=== PATIENT | male | born 1965 | race African-American/Black ===

== ENCOUNTER 2016-10-24 09:36 | Inpatient (IN) | payer OTHER ==
[2016-10-24 09:54] VITALS: BMI 25.7
--- NOTE | 2016-10-24 11:25 | HP ---
CIWA Score - CIWA Score Nausea/Vomitin-No Nausea/No Vomiting Muscle Tremors: 4-Moderate,w/Arms Extend Anxiety: 1-Mildly Anxious Agitation: 4-Moderately Restless Paroxysmal Sweats: 1-Minimal Palms Moist Orientation: 0-Oriented Tacttile Disturbances: 3-Moderate Itch/Numb/Burn Auditory Disturbances: 0-None Visual Disturbances: 0-None Headache: 1-Very Mild CIWA-Ar Total Score: 14 Admission ROS BHS - HPI Chief Complaint: DETOX TX FOR ALCOHOL DEPENDENCE Allergies/Adverse Reactions: Allergies Allergy/AdvReac Type Severity Reaction Status Date / Time fish derived [Fish derived] Allergy Rash Verified 10/24/16 10:08 No Known Drug Allergies Allergy Verified 10/24/16 10:08 Pork/Porcine Containing Allergy Rash Verified 10/24/16 10:08 Products History of Present Illness: 51 Y/O AA/MALE WITH A HX OF ALCOHOL,COCAINE AND MARIJUANA DEPENDENCE SEEKING DETOX TX Exam Limitations: No Limitations - Ebola screening Have you traveled outside of the country in the last 21 days: No Have you had contact with anyone from an Ebola affected area: No Have you been sick,other than usual withdrawal symptoms: No Do you have a fever: No - Review of Systems Constitutional: Chills, Loss of Appetite, Night Sweats, Changes in sleep EENT: reports: Tearing, Dental Problems (MISSING TEETH) Respiratory: reports: No Symptoms reported Cardiac: reports: Lightheadedness GI: reports: Diarrhea, Poor Appetite, Poor Fluid Intake, Indigestion : reports: Frequency Musculoskeletal: reports: No Symptoms Reported Integumentary: reports: No Symptoms Reported Neuro: reports: Headache, Tremors, Unsteady Gait, Dizziness Endocrine: reports: No Symptoms Reported Hematology: reports: No Symptoms Reported Psychiatric: reports: Orientated x3, Anxious, Depressed Other Systems: Reviewed and Negative Patient History - Patient Medical History Hx Anemia: No Hx Asthma: No Hx Chronic Obstructive Pulmonary Disease (COPD): No Hx Cardiac Disorders: No Hx Hypertension: No Hx Hypercholesterolemia: No HX Cerebrovascular Accident: No Hx Seizures: No Hx Diabetes: No Hx Gastrointestinal Disorders: No Hx Genitourinary Disorders: No Hx Sexually Transmitted Disorders: Yes (SYPHILIS HX) Hx Renal Disease (ESRD): No Hx Thyroid Disease: No Hx Human Immunodeficiency Virus (HIV): No (NEGATIVE HX) Hx Hepatitis C: No Hx Depression: Yes (WAS ON REMERON AND SEROQUEL) Hx Suicide Attempt: No Hx Bipolar Disorder: Yes Hx Schizophrenia: No - Patient Surgical History Past Surgical History: No Hx Neurologic Surgery: No Hx Cataract Extraction: No Hx Cardiac Surgery: No Hx Lung Surgery: No Hx Breast Surgery: No Hx Breast Biopsy: No Hx Abdominal Surgery: No Hx Appendectomy: No Hx Cholecystectomy: No Hx Genitourinary Surgery: No Hx Orthopedic Surgery: No Anesthesia Reaction: No - PPD History Previous Implant?: Yes Documented Results: Negative w/proof Implanted On Prior [facility] Admission?: Yes Date: 11/07/15 Results: 0 mm PPD to be Administered?: No - Reproductive History Patient is a Female of Child Bearing Age (11 -55 yrs old): No (MALE) Patient : (N/A) - Smoking Cessation Smoking history: Former smoker Have you smoked in the past 12 months: No If you are a former smoker, when did you quit?: 2013 Hx Chewing Tobacco Use: No Initiated information on smoking cessation: No - Substance & Tx. History Hx Alcohol Use: Yes (VODKA/BEER) Hx Substance Use: Yes (CRACK/MARIJUANA/PCP) Substance Use Type: Alcohol, Cocaine, Marijuana - Substances Abused Alcohol Route: Oral Frequency: Daily Amount used: fifth of vodka Age of first use: 10 Date of Last Use: 10/24/16 Crack Route: Smoking Frequency: Daily Amount used: $20 Age of first use: 18 Date of Last Use: 10/23/16 Marijuana/Hashish Route: Smoking Frequency: Daily Amount used: $20 Age of first use: 10 Date of Last Use: 10/23/16 PCP Route: Smoking Frequency: 1-3 times last 30 days Amount used: 1 joint Age of first use: 18 Date of Last Use: 10/17/16 Family Disease History - Family Disease History Family History: Denies Admission Physical Exam BHS - Vital Signs Vital Signs: Vital Signs - 24 hr 10/24/16 09:51 Temperature 97.8 F Pulse Rate 94 H Respiratory 18 Rate Blood Pressure 134/83 - Physical General Appearance: Yes: Moderate Distress, Alcohol on Breath, Intoxicated, Irritable, Anxious HEENTM: Yes: EOMI, Normocephalic, JAY, Pharynx Normal Respiratory: Yes: Chest Non-Tender, Lungs Clear, Normal Breath Sounds, No Respiratory Distress Neck: Yes: No masses,lesions,Nodules, Supple, Trachea in good position Breast: Yes: Breast Exam Deferred Cardiology: Yes: Regular Rhythm, Regular Rate, S1, S2 Abdominal: Yes: Normal Bowel Sounds, Non Tender, Soft Genitourinary: Yes: Other (N/C) Back: Yes: Within Normal Limits Musculoskeletal: Yes: full range of Motion, Gait Steady Extremities: Yes: Normal Range of Motion, Non-Tender Neurological: Yes: retread builder II-XII NML intact, Fully Oriented, Alert Integumentary: Yes: Dry, Warm Lymphatic: Yes: Within Normal Limits - Diagnostic (1) Alcohol dependence with uncomplicated withdrawal Current Visit: Yes Status: Acute (2) Cannabis dependence, uncomplicated Current Visit: Yes Status: Acute (3) Nicotine dependence Current Visit: Yes Status: Acute Qualifiers: Nicotine product type: cigarettes Substance use status: in withdrawal Qualified Code(s): F17.213 - Nicotine dependence, cigarettes, with withdrawal (4) Cocaine dependence, uncomplicated Current Visit: Yes Status: Acute (5) PCP (phencyclidine) abuse Current Visit: Yes Status: Acute Cleared for Admission [facility] - Detox or Rehab [facility] Level of Care: Medically Managed Detox Regimen/Protocol: Librium [facility] Breath Alcohol Content Breath Alcohol Content: 0.128 Urine Drug Screen - Results Drug Screen Negative: No Urine Drug Screen Results: THC-Marijuana, [place]-Cocaine, PCP-Phencyclidine
[2016-10-24] MEDS ORDERED: IBUPROFEN 400 MG TABLET (FP) PO PRN (11:39)
[2016-10-24] MEDS ORDERED: MENTHOL/PHENOL 1 EACH UD MM PRN (11:39)
[2016-10-24] MEDS ORDERED: diphenhydrAMINE HCL 50 MG CAPSULE PO PRN (11:39)
[2016-10-24] MEDS ORDERED: ACETAMINOPHEN 325 MG TABLET (FP) PO PRN (11:39)
[2016-10-24] MEDS ORDERED: MAG HYDROX/AL HYDROX/SIMETH 30 ML UNIT-DOSE CUP PO PRN (11:39)
[2016-10-24] MEDS ORDERED: LOPERAMIDE HCL 2 MG CAPSULE PO PRN (11:39)
[2016-10-24] MEDS ORDERED: MAGNESIUM CITRATE 300 ML BOTTLE PO PRN (11:39)
[2016-10-24] MEDS ORDERED: guaiFENesin/D-METHORPHAN HB 10 ML UNIT-DOSE CUPS PO PRN (11:39)
[2016-10-24] MEDS ORDERED: MAGNESIUM HYDROX 2400MG/30ML ORAL SUSPENSION 30 ML CUP PO PRN (11:39)
[2016-10-24] MEDS ORDERED: P-EPHED 60MG/TRIPROLIDI 2.5MG TABLET PO PRN (11:39)
[2016-10-24] MEDS ORDERED: chlordiazePOXIDE HCL 25 MG CAPSULE PO PRN (11:39)
[2016-10-24] MEDS ORDERED: chlordiazePOXIDE HCL 25 MG CAPSULE PO ONE (11:50)
[2016-10-24] MEDS: chlordiazePOXIDE HCL 25 MG CAPSULE PO SCH ×3 (12:06→22:51)
--- NOTE | 2016-10-24 13:39 | CONSULT ---
[facility] Psychiatric Consult - Data Date of interview: 10/24/16 Admission source: [facility] Identifying data: This is 51 years old male with historey of Schizophrenia intoxicated with: Alcohol, Cocaine, Cannabis, PCP Substance Abuse History: - Smoking Cessation. Smoking history: Former smoker. Have you smoked in the past 12 months: No. If you are a former smoker, when did you quit?: 2013. Hx Chewing Tobacco Use: No. Initiated information on smoking cessation: No. - Substance & Tx. History. Hx Alcohol Use: Yes (VODKA/ BEER). Hx Substance Use: Yes (CRACK/MARIJUANA/PCP). Substance Use Type: Alcohol, Cocaine, Marijuana. - Substances Abused. Alcohol. Route: Oral. Frequency: Daily. Amount used: fifth of vodka. Age of first use: 10. Date of Last Use: 10/24/16. Crack. Route: Smoking. Frequency: Daily. Amount used : $20. Age of first use: 18. Date of Last Use: 10/23/16. Marijuana/ Hashish. Route: Smoking. Frequency: Daily. Amount used: $20. Age of first use: 10. Date of Last Use: 10/23/16. PCP. Route: Smoking. Frequency: 1-3 times last 30 days. Amount used: 1 joint. Age of first use: 18. Date of Last Use: 10/17/16 Medical History: Denies any significant medeical issues Psychiatric History: Patient reports to carry Bipolar disorder, as per computer there is a history of Schiozophrenia, patient reports taking prior to admission : Seroquel 150mg po qhs. Remeron 30mg po qhs. Patient reports most recent psychiatric admissiuon [facility] 0n 2015 with depressed mood, denies suicidal history Physical/Sexual Abuse/Trauma History: Denies Additional Comment: Seroquel 150mg po qhs. Remeron 30mg po qhs Mental Status Exam - Mental Status Exam Alert and Oriented to: Person Cognitive Function: Fair Patient Appearance: Unkempt Mood: Anxious Affect: Constricted Patient Behavior: Sedated, Guarded Speech Pattern: Appropriate Voice Loudness: Normal Thought Process: Circumstantial Thought Disorder: Being Controlled Hallucinations: Denies Suicidal Ideation: Denies Homicidal Ideation: Denies Insight/Judgement: Fair Sleep: Difficulty falling asleep Appetite: Fair Muscle strength/Tone: Normal Gait/Station: Shuffling Additional Comments: Seroquel 150mg po qhs. 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 Remeron 30mg po qhs
[2016-10-24 13:43] LABS: MCH 31.1 pg (25.7-33.7); MCHC 33.5 g/dl (32.0-35.9); MEAN CELL VOLUME 92.6 fl (80-96); MEAN PLT VOLUME 10.4 fl (7.5-11.1); PLATELET COUNT 188 K/MM3 (134-434); RDW 15.5 % (11.9-15.9); WHITE BLOOD COUNT 6.1 K/mm3 (4.0-10.0)
[2016-10-24 13:53] LABS: ALBUMIN 4.3 g/dl (3.4-5.0); CALCIUM 9.3 mg/dL (8.5-10.1); GLUCOSE,RANDOM 86 mg/dL (74-106)
[2016-10-24 13:58] LABS: ALK PHOS 43 U/L (45-117); ANION GAP 11 (8-16); BILIRUBIN,TOTAL 0.8 mg/dL (0.2-1.0); CO2 26 mmol/L (21-32); CREATININE 0.8 mg/dL (0.7-1.3); SGOT/AST 102 U/L (15-37); SGPT/ALT 131 U/L (12-78)
[2016-10-24 17:05] LABS: URINE APPEARANCE CLEAR; URINE BILIRUBIN NEGATIVE (NEGATIVE); URINE BLOOD 1+ (NEGATIVE); URINE COLOR DKYELLOW; URINE GLUCOSE (UA) NEGATIVE (NEGATIVE); URINE KETONE TRACE (NEGATIVE); URINE LEUK ESTERASE TRACE (NEGATIVE); URINE NITRITE NEGATIVE (NEGATIVE); URINE UROBILINOGEN NEGATIVE mg/dL (0.2-1.0)
[2016-10-24 17:08] LABS: URINE PROTEIN 1+ (NEGATIVE)
[2016-10-24 17:10] LABS: URINE MUCUS FEW; URINE RBC 2 /hpf (0-3); URINE WBC 13 /hpf (3-5)
--- NOTE | 2016-10-24 17:47 | EKG ---
Test Reason : Blood Pressure : / mmHG Vent. Rate : 070 BPM Atrial Rate : 070 BPM P-R Int : 142 ms QRS Dur : 088 ms QT Int : 380 ms P-R-T Axes : 067 064 035 degrees QTc Int : 410 ms NORMAL SINUS RHYTHM VOLTAGE CRITERIA FOR LEFT VENTRICULAR HYPERTROPHY ABNORMAL ECG NO PREVIOUS ECGS AVAILABLE Confirmed by JUDIT DALTON, SRIRAM ([id number]) on 10/24/2016 5:46:52 PM Referred By: Mo Singer Confirmed By:SRIRAM SPAIN MD
[2016-10-24] MEDS: MIRTAZAPINE 30 MG TABLET (FP) PO SCH (22:50)
[2016-10-24] MEDS: QUEtiapine FUMARATE 50 MG TABLET PO SCH (22:50)
[2016-10-24] MEDS: THIAMINE HCL 100 MG TABLET (FP) PO SCH (22:51)
[2016-10-25] MEDS: chlordiazePOXIDE HCL 25 MG CAPSULE PO SCH ×4 (05:43→22:14)
[2016-10-25] MEDS: PRENATAL VITAMINS W/ FOLIC ACID TABLET (FP) PO SCH (11:38)
--- NOTE | 2016-10-25 11:58 | PN ---
[facility] CIWA - CIWA Score Nausea/Vomitin Muscle Tremors: 3 Anxiety: 3 Agitation: 2 Paroxysmal Sweats: 1-Minimal Palms Moist Orientation: 0-Oriented Tacttile Disturbances: 1-Very Mild Itch/Numbness Auditory Disturbances: 1-Very Mild Visual Disturbances: 1-Very Mild Sensitivity Headache: 2-Mild CIWA-Ar Total Score: 17 S Progress Note (SOAP) Subjective: ALERT,IRRITABLE,ANXIOUS,INTERRUPTED SLEEP,TREMOR,PAIN IN THE BODY Objective: 10/25/16 11:54 Vital Signs Temperature 97.5 F L 10/25/16 06:13 Pulse Rate 82 10/25/16 06:13 Respiratory Rate 18 10/25/16 06:13 Blood Pressure 117/57 10/25/16 06:13 O2 Sat by Pulse Oximetry (%) EKG NSR,LVH NO CHEST PAIN,NO SOB,NO DIZZINESS Laboratory Last Values WBC 6.1 K/mm3 (4.0-10.0) D 10/24/16 11:50 RBC 5.08 M/mm3 (4.00-5.60) 10/24/16 11:50 Hgb 15.8 GM/dL (11.7-16.9) 10/24/16 11:50 Hct 47.0 % (35.4-49) 10/24/16 11:50 MCV 92.6 fl (80-96) 10/24/16 11:50 MCH 31.1 pg (25.7-33.7) 10/24/16 11:50 MCHC 33.5 g/dl (32.0-35.9) 10/24/16 11:50 RDW 15.5 % (11.9-15.9) D 10/24/16 11:50 Plt Count 188 K/MM3 (134-434) D 10/24/16 11:50 MPV 10.4 fl (7.5-11.1) 10/24/16 11:50 Sodium 137 mmol/L (136-145) 10/24/16 11:50 Potassium 4.4 mmol/L (3.5-5.1) D 10/24/16 11:50 Chloride 100 mmol/L (98-107) 10/24/16 11:50 Carbon Dioxide 26 mmol/L (21-32) 10/24/16 11:50 Anion Gap 11 (8-16) 10/24/16 11:50 BUN 8 mg/dL (7-18) D 10/24/16 11:50 Creatinine 0.8 mg/dL (0.7-1.3) 10/24/16 11:50 Creat Clearance w eGFR > 60 (>60) 10/24/16 11:50 Random Glucose 86 mg/dL (74-106) 10/24/16 11:50 Calcium 9.3 mg/dL (8.5-10.1) 10/24/16 11:50 Total Bilirubin 0.8 mg/dL (0.2-1.0) D 10/24/16 11:50 AST 102 U/L (15-37) H D 10/24/16 11:50 ALT 131 U/L (12-78) H D 10/24/16 11:50 Alkaline Phosphatase 43 U/L (45-117) L 10/24/16 11:50 Total Protein 8.0 g/dl (6.4-8.2) 10/24/16 11:50 Albumin 4.3 g/dl (3.4-5.0) 10/24/16 11:50 Urine Color Dkyellow 10/24/16 14:00 Urine Appearance Clear 10/24/16 14:00 Urine pH 5.0 (5.0-8.0) 10/24/16 14:00 Ur Specific [place] >= 1.030 (1.005-1.025) H 10/24/16 14:00 Urine Protein 1+ (NEGATIVE) H 10/24/16 14:00 Urine Glucose (UA) Negative (NEGATIVE) 10/24/16 14:00 Urine Ketones Trace (NEGATIVE) H 10/24/16 14:00 Urine Blood 1+ (NEGATIVE) H 10/24/16 14:00 Urine Nitrite Negative (NEGATIVE) 10/24/16 14:00 Urine Bilirubin Negative (NEGATIVE) 10/24/16 14:00 Urine Urobilinogen Negative mg/dL (0.2-1.0) 10/24/16 14:00 Ur Leukocyte Esterase Trace (NEGATIVE) 10/24/16 14:00 Urine RBC 2 /hpf (0-3) 10/24/16 14:00 Urine WBC 13 /hpf (3-5) 10/24/16 14:00 Urine Mucus Few 10/24/16 14:00 RPR Titer Nonreactive (NONREACTIVE) 10/24/16 11:50 Assessment: 10/25/16 11:56 WITHDRAWAL SYMPTOM Plan: CONTINUE DETOX.D/C TYLENOL FOR TRANSAMINASEMIA,REPEAT AST,ALT,INR IN AM
[2016-10-25] MEDS: THIAMINE HCL 100 MG TABLET (FP) PO SCH (22:13)
[2016-10-25] MEDS: QUEtiapine FUMARATE 50 MG TABLET PO SCH (22:13)
[2016-10-25] MEDS: MIRTAZAPINE 30 MG TABLET (FP) PO SCH (22:14)
[2016-10-26] MEDS: chlordiazePOXIDE HCL 25 MG CAPSULE PO SCH (05:53)
[2016-10-26 10:16] LABS: INR 1.01 (0.82-1.09); PROTHROMBIN TIME (PATIENT) 11.1 SEC (9.98-11.88); SGOT/AST 41 U/L (15-37); SGPT/ALT 86 U/L (12-78)
--- NOTE | 2016-10-26 10:43 | PN ---
S CIWA - CIWA Score Nausea/Vomitin Muscle Tremors: 3 Anxiety: 3 Agitation: 2 Paroxysmal Sweats: 1-Minimal Palms Moist Orientation: 0-Oriented Tacttile Disturbances: 1-Very Mild Itch/Numbness Auditory Disturbances: 1-Very Mild Visual Disturbances: 1-Very Mild Sensitivity Headache: 2-Mild CIWA-Ar Total Score: 17 BHS Progress Note (SOAP) Subjective: alert,irritable,anxious,interrupted sleep,tremor,pain in the body Objective: 10/26/16 10:42 Vital Signs Temperature 97.7 F 10/26/16 10:05 Pulse Rate 122 H 10/26/16 10:05 Respiratory Rate 20 10/26/16 10:05 Blood Pressure 137/82 10/26/16 10:05 O2 Sat by Pulse Oximetry (%) 10/26/16 10:42 10/26/16 10:43 repeat ast,alt pending Assessment: 10/26/16 10:42 withdrawal symptom 10/26/16 10:43 10/26/16 10:44 Plan: continue detox
[2016-10-26] MEDS: chlordiazePOXIDE 5 MG CAPSULE PO SCH ×3 (10:50→22:39)
[2016-10-26] MEDS: PRENATAL VITAMINS W/ FOLIC ACID TABLET (FP) PO SCH (10:50)
[2016-10-26] MEDS: QUEtiapine FUMARATE 50 MG TABLET PO SCH (22:40)
[2016-10-26] MEDS: THIAMINE HCL 100 MG TABLET (FP) PO SCH (22:40)
[2016-10-26] MEDS: MIRTAZAPINE 30 MG TABLET (FP) PO SCH (22:40)
[2016-10-27] MEDS: chlordiazePOXIDE 5 MG CAPSULE PO SCH (06:04)
--- NOTE | 2016-10-27 11:06 | PN ---
S Progress Note (SOAP) Subjective: ALERT,IRRITABLE,ANXIOUS,INTERRUPTED SLEEP Objective: 10/27/16 11:04 Vital Signs Temperature 96.8 F L 10/27/16 09:29 Pulse Rate 103 H 10/27/16 09:29 Respiratory Rate 18 10/27/16 09:29 Blood Pressure 130/87 10/27/16 09:29 O2 Sat by Pulse Oximetry (%) 10/27/16 11:04 Laboratory Last Values WBC 6.1 K/mm3 (4.0-10.0) D 10/24/16 11:50 RBC 5.08 M/mm3 (4.00-5.60) 10/24/16 11:50 Hgb 15.8 GM/dL (11.7-16.9) 10/24/16 11:50 Hct 47.0 % (35.4-49) 10/24/16 11:50 MCV 92.6 fl (80-96) 10/24/16 11:50 MCH 31.1 pg (25.7-33.7) 10/24/16 11:50 MCHC 33.5 g/dl (32.0-35.9) 10/24/16 11:50 RDW 15.5 % (11.9-15.9) D 10/24/16 11:50 Plt Count 188 K/MM3 (134-434) D 10/24/16 11:50 MPV 10.4 fl (7.5-11.1) 10/24/16 11:50 INR 1.01 (0.82-1.09) 10/26/16 06:30 Sodium 137 mmol/L (136-145) 10/24/16 11:50 Potassium 4.4 mmol/L (3.5-5.1) D 10/24/16 11:50 Chloride 100 mmol/L (98-107) 10/24/16 11:50 Carbon Dioxide 26 mmol/L (21-32) 10/24/16 11:50 Anion Gap 11 (8-16) 10/24/16 11:50 BUN 8 mg/dL (7-18) D 10/24/16 11:50 Creatinine 0.8 mg/dL (0.7-1.3) 10/24/16 11:50 Creat Clearance w eGFR > 60 (>60) 10/24/16 11:50 Random Glucose 86 mg/dL (74-106) 10/24/16 11:50 Calcium 9.3 mg/dL (8.5-10.1) 10/24/16 11:50 Total Bilirubin 0.8 mg/dL (0.2-1.0) D 10/24/16 11:50 AST 41 U/L (15-37) H D 10/26/16 06:30 ALT 86 U/L (12-78) H D 10/26/16 06:30 Alkaline Phosphatase 43 U/L (45-117) L 10/24/16 11:50 Total Protein 8.0 g/dl (6.4-8.2) 10/24/16 11:50 Albumin 4.3 g/dl (3.4-5.0) 10/24/16 11:50 Urine Color Dkyellow 10/24/16 14:00 Urine Appearance Clear 10/24/16 14:00 Urine pH 5.0 (5.0-8.0) 10/24/16 14:00 Ur Specific [place] >= 1.030 (1.005-1.025) H 10/24/16 14:00 Urine Protein 1+ (NEGATIVE) H 10/24/16 14:00 Urine Glucose (UA) Negative (NEGATIVE) 10/24/16 14:00 Urine Ketones Trace (NEGATIVE) H 10/24/16 14:00 Urine Blood 1+ (NEGATIVE) H 10/24/16 14:00 Urine Nitrite Negative (NEGATIVE) 10/24/16 14:00 Urine Bilirubin Negative (NEGATIVE) 10/24/16 14:00 Urine Urobilinogen Negative mg/dL (0.2-1.0) 10/24/16 14:00 Ur Leukocyte Esterase Trace (NEGATIVE) 10/24/16 14:00 Urine RBC 2 /hpf (0-3) 10/24/16 14:00 Urine WBC 13 /hpf (3-5) 10/24/16 14:00 Urine Mucus Few 10/24/16 14:00 RPR Titer Nonreactive (NONREACTIVE) 10/24/16 11:50 Assessment: 10/27/16 11:05 WITHDRAWAL SYMPTOM Plan: CONTINUE DETOX,DISCHARGE IN AM
[2016-10-27] MEDS: PRENATAL VITAMINS W/ FOLIC ACID TABLET (FP) PO SCH (11:21)
[2016-10-27] MEDS: chlordiazePOXIDE HCL 10 MG CAPSULE PO SCH ×3 (11:22→22:29)
[2016-10-27] MEDS: QUEtiapine FUMARATE 50 MG TABLET PO SCH (22:28)
[2016-10-27] MEDS: MIRTAZAPINE 30 MG TABLET (FP) PO SCH (22:28)
[2016-10-27] MEDS: THIAMINE HCL 100 MG TABLET (FP) PO SCH (22:29)
[2016-10-28] MEDS: chlordiazePOXIDE HCL 10 MG CAPSULE PO SCH (05:55)
[2016-10-28 06:30] VITALS: BP 111/66; PULSE 101; TEMP 98.1
--- NOTE | 2016-10-28 09:39 | DS ---
[facility] Detox Discharge Summary Admission Date: 10/24/16 Discharge Date: 10/28/16 - History Present History: Alcohol Dependence, Cannabis Dependence, Cocaine Dependence Pertinent Past History: pcp abused nicotine dependence paranoid schizophrenia - Physical Exam Results Vital Signs: Vital Signs Temperature 98.1 F 10/28/16 06:28 Pulse Rate 101 H 10/28/16 06:28 Respiratory Rate 18 10/28/16 06:28 Blood Pressure 111/66 10/28/16 06:28 O2 Sat by Pulse Oximetry (%) Pertinent Admission Physical Exam Findings: withdrawal symptom - Treatment Hospital Course: Detox Protocol Followed, Detoxed Safely, Responded well, Discharged Condition Good, Rehab Referral Accepted Patient has Accepted a Rehab Referral to: [facility] - Medication Discharge Medications: Ambulatory Orders Quetiapine Fumarate [Seroquel -] 50 mg PO HS 11/05/15 Quetiapine Fumarate [Seroquel] 50 tab PO HS #30 tablet 11/05/15 - Diagnosis (1) Alcohol dependence with uncomplicated withdrawal Current Visit: Yes Status: Acute (2) Cannabis dependence, uncomplicated Current Visit: Yes Status: Acute (3) Cocaine dependence, uncomplicated Current Visit: Yes Status: Acute (4) Nicotine dependence Current Visit: Yes Status: Acute Qualifiers: Nicotine product type: cigarettes Substance use status: in withdrawal Qualified Code(s): F17.213 - Nicotine dependence, cigarettes, with withdrawal (5) PCP (phencyclidine) abuse Current Visit: Yes Status: Acute (6) Paraphrenic schizophrenia Current Visit: No Status: Suspected - AMA Did Patient Leave Against Medical Advice: No
== END 2016-10-28 10:08 | disposition home or self-care (01) | DRG 774 ==
LOC: YASAS 09:36 → Y6N 11:38
PROVIDERS: ADMIT Internal Medicine; ATTEND Internal Medicine
PROC: HZ2ZZZZ Detoxification Services for Substance Abuse Treatment (ICD-10-PCS; principal; 2016-10-24)
DX: F10.230 Alcohol dependence with withdrawal, uncomplicated (principal); F14.20 Cocaine dependence, uncomplicated; F12.20 Cannabis dependence, uncomplicated; F16.10 Hallucinogen abuse, uncomplicated; F17.213 Nicotine dependence, cigarettes, with withdrawal; F20.0 Paranoid schizophrenia; Z87.438 Personal history of other diseases of male genital organs; Z91.013 Allergy to seafood; Z91.018 Allergy to other foods; Z59.0 Homelessness
CPT/HCPCS: 36415; 80053; 81003; 81015; 84450; 84460; 85027; 85610; 86593; 93005; 93010

== ENCOUNTER 2019-10-01 10:09 | Inpatient (IN) | payer OTHER ==
--- NOTE | 2019-10-01 10:24 | BHS.RME ---
Substance Use & Tx History - Substance Use History Alcohol Substance amount: 2 pints vodka Frequency of use: Daily Substance route: Oral Date of Last Use: 10/01/19 (6am) Cocaine- Powder Substance amount: $50 Frequency of use: Less than 3 times per week Substance route: Inhalation (ex: sniffing or snorting) Date of Last Use: 09/26/19 Marijuana/Hashish Substance amount: 1 JOINT Frequency of use: Daily Substance route: Smoking Date of Last Use: 10/01/19 Physical/Psych/Mental Status - Behavior General Behavior: Increased activity (restlessness, agitation) Eye Contact: Normal - Cooperativeness Cooperativeness: Cooperative - Thinking Thought Processes: Tight, Logical, Goal Directed - Physical Health Problems Is patient presently having any pain?: No Does patient presently have any injuries (include location): No Does patient currently have a fever: No Is patient : No CIWA Nausea/Vomitin-No Nausea/No Vomiting Muscle Tremors: 1-None Visible, but [place] Anxiety: 3 Agitation: 3 Paroxysmal Sweats: No Perspiration Orientation: 1-Uncertain about Date Tacttile Disturbances: 1-Very Mild Itch/Numbness Auditory Disturbances: 0-None Visual Disturbances: 0-None Headache: 0-None Present CIWA-Ar Total Score: 9
--- NOTE | 2019-10-01 10:30 | HP ---
CIWA Score Nausea/Vomitin-No Nausea/No Vomiting Muscle Tremors: 1-None Visible, but [place] Anxiety: 3 Agitation: 3 Paroxysmal Sweats: No Perspiration Orientation: 1-Uncertain about Date Tacttile Disturbances: 1-Very Mild Itch/Numbness Auditory Disturbances: 0-None Visual Disturbances: 0-None Headache: 0-None Present CIWA-Ar Total Score: 9 - Admission Criteria OASAS Guidelines: Admission for Medically Managed Detox: Requires at least one of the followin. CIWA greater than 12 2. Seizures within the past 24 hours 3. Delirium tremens within the past 24 hours 4. Hallucinations within the past 24 hours 5. Acute intervention needed for co occurring medical disorder 6. Acute intervention needed for co occurring psychiatric disorder 7. Severe withdrawal that cannot be handled at a lower level of care (continued vomiting, continued diarrhea, abnormal vital signs) requiring intravenous medication and/or fluids 8. Admitting History and Physical - Admission Chief Complaint: Mr. Calhoun is a 54 yo man who presents to [facility] stating "I need help". He requests admission to detox for alcohol, cocaine and marijuana use. History of Present Illness: Mr. Calhoun is a 54 yo man who presents to [facility] stating "I need help". He requests admission to detox for alcohol, cocaine and marijuana use. PMH: none PSH: left inguinal hernia Psych: Bipolar, depression, anxiety (Remeron 200 qhs, Seroquel 15 mg bid) SOC: homeless: streets Legal: none - Substance Use History Alcohol Substance amount: 2 pints vodka Frequency of use: Daily Substance route: Oral Date of Last Use: 10/01/19 (6am) Began age 10 y No seizure, no blackout. 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 Cocaine- Powder Substance amount: $50 Frequency of use: Less than 3 times per week Substance route: Inhalation (ex: sniffing or snorting) Date of Last Use: 09/26/19 First use age 18 y Marijuana/Hashish Substance amount: 1 JOINT Frequency of use: Daily Substance route: Smoking Date of Last Use: 10/01/19 First use age 10 y Nicotine: sporadically - Smoking History Smoking history: Former smoker Have you smoked in the past 12 months: No If you are a former smoker, when did you quit?: 2014 - Alcohol/Substance Use Hx Alcohol Use: Yes (VODKA/BEER) Admission [facility] Allergies/Adverse Reactions: Allergies Allergy/AdvReac Type Severity Reaction Status Date / Time fish derived [Fish derived] Allergy Rash Verified 10/01/19 11:13 No Known Drug Allergies Allergy Verified 10/01/19 11:13 Pork/Porcine Containing Allergy Rash Verified 10/01/19 11:13 Products Exam Limitations: No Limitations - Ebola screening Have you traveled outside of the country in the last 21 days: No Have you been sick,other than usual withdrawal symptoms: No Do you have a fever: No - Review of Systems Constitutional: Unintentional Wgt. Loss (50 lbs in 2.5 mos) EENT: reports: No Symptoms Reported Respiratory: reports: No Symptoms reported Cardiac: reports: No Symptoms Reported GI: reports: No Symptoms Reported : reports: No Symptoms Reported Musculoskeletal: reports: No Symptoms Reported Integumentary: reports: Dryness Endocrine: reports: No Symptoms Reported Hematology: reports: No Symptoms Reported Psychiatric: reports: Anxious Patient History - Patient Medical History Hx Anemia: No Hx Asthma: No Hx Chronic Obstructive Pulmonary Disease (COPD): No Hx Cardiac Disorders: No Hx Hypertension: No Hx Hypercholesterolemia: No HX Cerebrovascular Accident: No Hx Seizures: No Hx Diabetes: No Hx Gastrointestinal Disorders: No Hx Genitourinary Disorders: No Hx Sexually Transmitted Disorders: Yes (SYPHILIS HX) Hx Renal Disease (ESRD): No Hx Thyroid Disease: No Hx Human Immunodeficiency Virus (HIV): No (NEGATIVE HX) Hx Hepatitis C: No Hx Depression: Yes (WAS ON REMERON AND SEROQUEL) Hx Suicide Attempt: No Hx Bipolar Disorder: Yes Hx Schizophrenia: No - Patient Surgical History Past Surgical History: No Hx Neurologic Surgery: No Hx Cataract Extraction: No Hx Cardiac Surgery: No Hx Lung Surgery: No Hx Breast Surgery: No Hx Breast Biopsy: No Hx Abdominal Surgery: No Hx Appendectomy: No Hx Cholecystectomy: No Hx Genitourinary Surgery: No Hx Section: No Hx Orthopedic Surgery: No Anesthesia Reaction: No - PPD History Date: 11/07/15 Results: 0 mm - Smoking Cessation Smoking history: Former smoker Have you smoked in the past 12 months: No If you are a former smoker, when did you quit?: 2013 Hx Chewing Tobacco Use: No Initiated information on smoking cessation: No - Substances abused Alcohol Substance route: Oral Frequency: Daily Amount used: vodka- 2pts Age of first use: 10 Date of last use: 10/01/19 Marijuana/Hashish Substance route: Oral Frequency: Daily Amount used: $20 Age of first use: 10 Date of last use: 09/30/19 Cocaine Substance route: Smoking Frequency: 1-2 times per week Amount used: 50 Age of first use: 18 Date of last use: 09/29/19 Admission Physical Exam [facility] - Physical General Appearance: Yes: Within Normal Limits, No Apparent Distress, Nourished, Appropriately Dressed HEENTM: Yes: EOMI, Hearing grossly Normal, Normocephalic, Normal Voice Respiratory: Yes: Lungs Clear, Normal Breath Sounds, No Accessory Muscle Use Neck: Yes: Within Normal Limits, Supple Breast: Yes: Breast Exam Deferred Cardiology: Yes: Regular Rhythm, Regular Rate, S1, S2 Abdominal: Yes: Normal Bowel Sounds, Non Tender, Flat, Soft Back: Yes: Normal Inspection Musculoskeletal: Yes: Gait Steady Extremities: Yes: Normal Inspection, Non-Tender Neurological: Yes: Alert, Normal Mood/Affect, Normal Response Integumentary: Yes: Within Normal Limits - Diagnostic (1) Bipolar 1 disorder Current Visit: Yes Status: Chronic (2) Alcohol dependence with uncomplicated withdrawal Current Visit: Yes Status: Acute (3) Cannabis dependence, uncomplicated Current Visit: Yes Status: Acute (4) Cocaine dependence, uncomplicated Current Visit: Yes Status: Acute Cleared for Admission [facility] - Detox or Rehab [facility] Level of Care: Medically Managed Detox Regimen/Protocol: Librium Inpatient Rehab Admission - Rehab Decision to Admit Inpatient rehab admission?: No
[2019-10-01 11:18] VITALS: BMI 23.0
[2019-10-01] MEDS ORDERED: ONDANSETRON *ODT* 4 MG TABLET SL PRN (11:38)
[2019-10-01] MEDS ORDERED: MAGNESIUM CITRATE 300 ML BOTTLE PO PRN (11:38)
[2019-10-01] MEDS ORDERED: METHOCARBAMOL 500 MG TABLET PO PRN (11:38)
[2019-10-01] MEDS ORDERED: ACETAMINOPHEN 325 MG TABLET (FP) PO PRN ×2 (11:38)
[2019-10-01] MEDS ORDERED: MAG HYDROX/AL HYDROX/SIMETH 30 ML UNIT-DOSE CUP PO PRN (11:38)
[2019-10-01] MEDS ORDERED: IBUPROFEN 400 MG TABLET (FP) PO PRN (11:38)
[2019-10-01] MEDS ORDERED: BISMUTH SUBSALICYLATE 262 MG/15 ML BTL PO PRN (11:38)
[2019-10-01] MEDS ORDERED: MAGNESIUM HYDROX 2400MG/30ML ORAL SUSPENSION 30 ML CUP PO PRN (11:38)
[2019-10-01] MEDS ORDERED: MENTHOL/PHENOL 1 EACH UD MM PRN (11:38)
[2019-10-01] MEDS ORDERED: COLLOIDAL OATMEAL 1 BAR EACH TP PRN (11:41)
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
[2019-10-01] MEDS: chlordiazePOXIDE HCL 25 MG CAPSULE PO PRN (12:38)
[2019-10-01] MEDS: hydrOXYzine PAMOATE 25 MG CAPSULE (FP) PO SCH ×3 (15:25→22:14)
[2019-10-01 16:17] LABS: HEMATOCRIT 42.5 % (35.4-49); HEMOGLOBIN 14.5 GM/dL (11.7-16.9); MCHC 34.1 g/dl (32.0-35.9); MEAN PLT VOLUME 9.8 fl (7.5-11.1); PLATELET COUNT 298 K/MM3 (134-434); RBC 4.52 M/mm3 (4.00-5.60); RDW 13.9 % (11.9-15.9); WHITE BLOOD COUNT 6.9 K/mm3 (4.0-10.0)
[2019-10-01 16:19] LABS: BILIRUBIN,TOTAL 0.4 mg/dL (0.2-1); BLOOD UREA NITROGEN 8.3 mg/dL (7-18); CALCIUM 9.6 mg/dL (8.5-10.1); CREATININE 0.7 mg/dL (0.55-1.3); POTASSIUM 4.1 mmol/L (3.5-5.1); TOT PROT 7.5 g/dl (6.4-8.2)
[2019-10-01] MEDS: chlordiazePOXIDE HCL 25 MG CAPSULE PO SCH ×2 (17:38→22:14)
[2019-10-01] MEDS: THIAMINE HCL 100 MG TABLET (FP) PO SCH (22:14)
[2019-10-01] MEDS: QUEtiapine FUMARATE 100 MG TABLET (FP) PO SCH (22:14)
[2019-10-01] MEDS: MELATONIN 5 MG TABLETS PO SCH (22:16)
[2019-10-02] MEDS: chlordiazePOXIDE HCL 25 MG CAPSULE PO SCH ×4 (06:29→22:30)
[2019-10-02] MEDS: hydrOXYzine PAMOATE 25 MG CAPSULE (FP) PO SCH ×2 (06:29→10:16)
[2019-10-02] MEDS: PRENATAL VITAMINS W/ FOLIC ACID TABLET (FP) PO SCH (10:16)
[2019-10-02] MEDS ORDERED: hydrOXYzine PAMOATE 25 MG CAPSULE (FP) PO PRN (10:25)
--- NOTE | 2019-10-02 10:45 | PN ---
S CIWA - CIWA Score Nausea/Vomitin-No Nausea/No Vomiting Muscle Tremors: 3 Anxiety: 1-Mildly Anxious Agitation: 2 Paroxysmal Sweats: 1-Minimal Palms Moist Orientation: 0-Oriented Tacttile Disturbances: 0-None Auditory Disturbances: 0-None Visual Disturbances: 0-None Headache: 0-None Present CIWA-Ar Total Score: 7 S Progress Note (SOAP) Subjective: sweats shakes interrupted sleep body aches Objective: 10/02/19 10:43 Vital Signs Temperature 96.8 F L 10/02/19 08:42 Pulse Rate 92 H 10/02/19 08:42 Respiratory Rate 18 10/02/19 08:42 Blood Pressure 127/71 10/02/19 08:42 O2 Sat by Pulse Oximetry (%) 99 10/02/19 05:17 Laboratory Tests 10/01/19 10/01/19 10/01/19 12:10 12:10 12:10 WBC 6.9 RBC 4.52 Hgb 14.5 Hct 42.5 MCV 94.0 MCH 32.0 MCHC 34.1 RDW 13.9 D Plt Count 298 D MPV 9.8 Sodium 140 Potassium 4.1 Chloride 107 Carbon Dioxide 25 Anion Gap 9 BUN 8.3 Creatinine 0.7 Est GFR (CKD-EPI)AfAm 124.87 Est GFR (CKD-EPI)NonAf 107.74 Random Glucose 101 Calcium 9.6 Total Bilirubin 0.4 AST 28 ALT 28 Alkaline Phosphatase 34 L Total Protein 7.5 Albumin 4.0 Syphilis Serology Reactive A* RPR Titer 10/01/19 12:10 WBC RBC Hgb Hct MCV MCH MCHC RDW Plt Count MPV Sodium Potassium Chloride Carbon Dioxide Anion Gap BUN Creatinine Est GFR (CKD-EPI)AfAm Est GFR (CKD-EPI)NonAf Random Glucose Calcium Total Bilirubin AST ALT Alkaline Phosphatase Total Protein Albumin Syphilis Serology RPR Titer Reactive 1:1 H D labs noted rpr reactive low titer 1:1 aaox3 ambulating no acute distress Assessment: 10/02/19 10:44 withdrawals Plan: continue detox increase fluids pt states he received treatment for a syphilis in the past. Pt was offered a booster bicilin injection but refused.
[2019-10-02] MEDS: chlordiazePOXIDE HCL 25 MG CAPSULE PO PRN (13:35)
[2019-10-02] MEDS: MELATONIN 5 MG TABLETS PO SCH (22:29)
[2019-10-02] MEDS: QUEtiapine FUMARATE 100 MG TABLET (FP) PO SCH (22:30)
[2019-10-02] MEDS: THIAMINE HCL 100 MG TABLET (FP) PO SCH (22:32)
[2019-10-03] MEDS: chlordiazePOXIDE HCL 25 MG CAPSULE PO SCH ×4 (05:27→22:19)
--- NOTE | 2019-10-03 10:08 | PN ---
S CIWA - CIWA Score Nausea/Vomitin-No Nausea/No Vomiting Muscle Tremors: 2 Anxiety: 2 Agitation: 2 Paroxysmal Sweats: 2 Orientation: 0-Oriented Tacttile Disturbances: 0-None Auditory Disturbances: 0-None Visual Disturbances: 0-None Headache: 0-None Present CIWA-Ar Total Score: 8 BHS Progress Note (SOAP) Subjective: sweats poor appetite interrupted sleep Objective: 10/03/19 10:51 Vital Signs Temperature 97.7 F 10/03/19 09:02 Pulse Rate 101 H 10/03/19 09:02 Respiratory Rate 18 10/03/19 09:02 Blood Pressure 140/79 10/03/19 09:02 O2 Sat by Pulse Oximetry (%) 100 10/03/19 05:19 Laboratory Tests 10/01/19 10/01/19 10/01/19 12:10 12:10 12:10 WBC 6.9 RBC 4.52 Hgb 14.5 Hct 42.5 MCV 94.0 MCH 32.0 MCHC 34.1 RDW 13.9 D Plt Count 298 D MPV 9.8 Sodium 140 Potassium 4.1 Chloride 107 Carbon Dioxide 25 Anion Gap 9 BUN 8.3 Creatinine 0.7 Est GFR (CKD-EPI)AfAm 124.87 Est GFR (CKD-EPI)NonAf 107.74 Random Glucose 101 Calcium 9.6 Total Bilirubin 0.4 AST 28 ALT 28 Alkaline Phosphatase 34 L Total Protein 7.5 Albumin 4.0 Syphilis Serology Reactive A* RPR Titer COVID-19 (JOY) 10/01/19 10/01/19 12:10 12:15 WBC RBC Hgb Hct MCV MCH MCHC RDW Plt Count MPV Sodium Potassium Chloride Carbon Dioxide Anion Gap BUN Creatinine Est GFR (CKD-EPI)AfAm Est GFR (CKD-EPI)NonAf Random Glucose Calcium Total Bilirubin AST ALT Alkaline Phosphatase Total Protein Albumin Syphilis Serology RPR Titer Reactive 1:1 H D COVID-19 (JOY) Not detected aaox3 ambulating no acute distress Assessment: 10/03/19 10:51 withdrawals Plan: continue detox ensure bid for lunch and dinner
[2019-10-03] MEDS: PRENATAL VITAMINS W/ FOLIC ACID TABLET (FP) PO SCH (10:27)
[2019-10-03] MEDS: QUEtiapine FUMARATE 100 MG TABLET (FP) PO SCH (22:19)
[2019-10-03] MEDS: THIAMINE HCL 100 MG TABLET (FP) PO SCH (22:19)
[2019-10-03] MEDS: MELATONIN 5 MG TABLETS PO SCH (23:25)
[2019-10-04] MEDS ORDERED: chlordiazePOXIDE HCL 10 MG CAPSULE PO PRN
[2019-10-04] MEDS ORDERED: chlordiazePOXIDE HCL 10 MG CAPSULE PO SCH (05:00)
[2019-10-04 06:10] VITALS: BP 135/83; PULSE 65; TEMP 97.7
--- NOTE | 2019-10-04 08:39 | DS ---
[facility] Detox Discharge Summary Admission Date: 10/01/19 Discharge Date: 10/04/19 - History Present History: Alcohol Dependence, Cannabis Dependence, Cocaine Dependence, Pcp Dependence - Physical Exam Results Vital Signs: Vital Signs Temperature 97.7 F 10/04/19 05:22 Pulse Rate 65 10/04/19 05:22 Respiratory Rate 20 10/04/19 05:22 Blood Pressure 135/83 10/04/19 05:22 O2 Sat by Pulse Oximetry (%) 100 10/04/19 05:22 Pertinent Admission Physical Exam Findings: Vital Signs Temperature 97.7 F 10/04/19 05:22 Pulse Rate 65 10/04/19 05:22 Respiratory Rate 20 10/04/19 05:22 Blood Pressure 135/83 10/04/19 05:22 O2 Sat by Pulse Oximetry (%) 100 10/04/19 05:22 Laboratory Tests 10/01/19 10/01/19 10/01/19 12:10 12:10 12:10 WBC 6.9 RBC 4.52 Hgb 14.5 Hct 42.5 MCV 94.0 MCH 32.0 MCHC 34.1 RDW 13.9 D Plt Count 298 D MPV 9.8 Sodium 140 Potassium 4.1 Chloride 107 Carbon Dioxide 25 Anion Gap 9 BUN 8.3 Creatinine 0.7 Est GFR (CKD-EPI)AfAm 124.87 Est GFR (CKD-EPI)NonAf 107.74 Random Glucose 101 Calcium 9.6 Total Bilirubin 0.4 AST 28 ALT 28 Alkaline Phosphatase 34 L Total Protein 7.5 Albumin 4.0 Syphilis Serology Reactive A* RPR Titer COVID-19 (JOY) 10/01/19 10/01/19 12:10 12:15 WBC RBC Hgb Hct MCV MCH MCHC RDW Plt Count MPV Sodium Potassium Chloride Carbon Dioxide Anion Gap BUN Creatinine Est GFR (CKD-EPI)AfAm Est GFR (CKD-EPI)NonAf Random Glucose Calcium Total Bilirubin AST ALT Alkaline Phosphatase Total Protein Albumin Syphilis Serology RPR Titer Reactive 1:1 H D COVID-19 (JOY) Not detected aaox3 ambulating no acute distress lungs CTA - Treatment Hospital Course: Detox Protocol Followed, Detoxed Safely, Responded well, Discharged Condition Good, Rehab Referral Accepted - Medication Discharge Medications: Ambulatory Orders NK [No Known Home Medication] 10/01/19 - Diagnosis (1) Alcohol dependence with uncomplicated withdrawal Current Visit: Yes Status: Chronic (2) Cannabis dependence, uncomplicated Current Visit: Yes Status: Chronic (3) Cocaine dependence, uncomplicated Current Visit: Yes Status: Chronic (4) Substance-induced sleep disorder Current Visit: Yes Status: Acute (5) Bipolar 1 disorder Current Visit: Yes Status: Chronic (6) Mood disorder Current Visit: Yes Status: Chronic (7) Bipolar disorder Current Visit: Yes Status: Ruled-out (8) Nicotine dependence Current Visit: Yes Status: Chronic Qualifiers: Nicotine product type: cigarettes Substance use status: uncomplicated Qualified Code(s): F17.210 - Nicotine dependence, cigarettes, uncomplicated (9) PCP (phencyclidine) abuse Current Visit: Yes Status: Chronic (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
[2019-10-05] MEDS ORDERED: chlordiazePOXIDE HCL 10 MG CAPSULE PO SCH (05:00)
[2019-10-06] MEDS ORDERED: chlordiazePOXIDE HCL 10 MG CAPSULE PO ONE (05:00)
== END 2019-10-04 09:25 | disposition home or self-care (01) | DRG 774 ==
LOC: YASAS 10:09 → Y6N 11:35
PROVIDERS: ADMIT Allergy & Immunology; ATTEND Allergy & Immunology
PROC: HZ2ZZZZ Detoxification Services for Substance Abuse Treatment (ICD-10-PCS; principal; 2019-10-01)
DX: F10.230 Alcohol dependence with withdrawal, uncomplicated (principal); F14.20 Cocaine dependence, uncomplicated; F16.10 Hallucinogen abuse, uncomplicated; F12.20 Cannabis dependence, uncomplicated; Z72.0 Tobacco use; F19.282 Other psychoactive substance dependence with psychoactive substance-induced sleep disorder; F31.89 Other bipolar disorder; F20.0 Paranoid schizophrenia; F39 Unspecified mood [affective] disorder; Z62.810 Personal history of physical and sexual abuse in childhood; Z86.19 Personal history of other infectious and parasitic diseases; Z91.013 Allergy to seafood; Z91.018 Allergy to other foods
CPT/HCPCS: 36415; 80053; 85027; 86593; 86780; U0003

== ENCOUNTER 2020-07-14 09:39 | Inpatient (IN) | payer OTHER ==
[2020-07-14] MEDS ORDERED: MENTHOL/PHENOL 1 EACH UD MM PRN (10:34)
[2020-07-14] MEDS ORDERED: MAG HYDROX/AL HYDROX/SIMETH 30 ML UNIT-DOSE CUP PO PRN (10:34)
[2020-07-14] MEDS ORDERED: MAGNESIUM HYDROX 2400MG/30ML ORAL SUSPENSION 30 ML CUP PO PRN (10:34)
[2020-07-14] MEDS ORDERED: MAGNESIUM CITRATE 300 ML BOTTLE PO PRN (10:34)
[2020-07-14] MEDS ORDERED: chlordiazePOXIDE HCL 25 MG CAPSULE PO PRN (10:34)
[2020-07-14] MEDS ORDERED: IBUPROFEN 400 MG TABLET (FP) PO PRN (10:34)
[2020-07-14] MEDS ORDERED: BISMUTH SUBSALICYLATE 262 MG/15 ML BTL PO PRN (10:34)
[2020-07-14] MEDS ORDERED: ACETAMINOPHEN 325 MG TABLET (FP) PO PRN ×2 (10:34)
[2020-07-14] MEDS ORDERED: ONDANSETRON *ODT* 4 MG TABLET SL PRN (10:34)
[2020-07-14] MEDS ORDERED: METHOCARBAMOL 500 MG TABLET PO PRN (10:34)
[2020-07-14 10:36] VITALS: BMI 17.7
[2020-07-14] MEDS: PRENATAL VITAMINS W/ FOLIC ACID TABLET (FP) PO SCH (11:53)
[2020-07-14] MEDS: chlordiazePOXIDE HCL 25 MG CAPSULE PO SCH ×3 (11:53→22:05)
[2020-07-14] MEDS: hydrOXYzine PAMOATE 25 MG CAPSULE (FP) PO SCH ×3 (15:13→22:04)
[2020-07-14 16:04] LABS: HEMATOCRIT 46.7 % (35.4-49); HEMOGLOBIN 15.5 GM/dL (11.7-16.9); MCH 31.5 pg (25.7-33.7); MCHC 33.2 g/dl (32.0-35.9); MEAN PLT VOLUME 10.7 fl (7.5-11.1); PLATELET COUNT 225 K/MM3 (134-434); RBC 4.92 M/mm3 (4.00-5.60); RDW 13.8 % (11.9-15.9); WHITE BLOOD COUNT 7.1 K/mm3 (4.0-10.0)
[2020-07-14 16:10] LABS: ALBUMIN 4.2 g/dl (3.4-5.0)
[2020-07-14 16:11] LABS: BLOOD UREA NITROGEN 7.9 mg/dL (7-18); CALCIUM 9.4 mg/dL (8.5-10.1)
[2020-07-14 16:13] LABS: CREATININE 0.8 mg/dL (0.55-1.3)
[2020-07-14 16:15] LABS: BILIRUBIN,TOTAL 0.8 mg/dL (0.2-1); TOT PROT 7.8 g/dl (6.4-8.2)
[2020-07-14] MEDS ORDERED: QUEtiapine FUMARATE 100 MG TABLET (FP) PO SCH (22:00)
[2020-07-14] MEDS: MELATONIN 5 MG TABLETS PO SCH (22:04)
[2020-07-14] MEDS: THIAMINE HCL 100 MG TABLET (FP) PO SCH (22:04)
[2020-07-14] MEDS: QUEtiapine FUMARATE 100 MG TABLET (FP) PO SCH (22:04)
[2020-07-14] MEDS: MIRTAZAPINE 30 MG TABLET PO SCH (22:04)
[2020-07-15] MEDS: chlordiazePOXIDE HCL 25 MG CAPSULE PO SCH ×4 (06:25→22:38)
[2020-07-15] MEDS: hydrOXYzine PAMOATE 25 MG CAPSULE (FP) PO SCH ×2 (06:27→11:19)
[2020-07-15] MEDS ORDERED: hydrOXYzine PAMOATE 25 MG CAPSULE (FP) PO PRN (10:29)
[2020-07-15] MEDS: PRENATAL VITAMINS W/ FOLIC ACID TABLET (FP) PO SCH (10:54)
[2020-07-15] MEDS: MELATONIN 5 MG TABLETS PO SCH (22:37)
[2020-07-15] MEDS: THIAMINE HCL 100 MG TABLET (FP) PO SCH (22:38)
[2020-07-15] MEDS: QUEtiapine FUMARATE 100 MG TABLET (FP) PO SCH (22:38)
[2020-07-15] MEDS: MIRTAZAPINE 30 MG TABLET PO SCH (22:38)
[2020-07-16] MEDS: chlordiazePOXIDE HCL 25 MG CAPSULE PO SCH ×4 (06:00→22:24)
[2020-07-16] MEDS: PRENATAL VITAMINS W/ FOLIC ACID TABLET (FP) PO SCH (10:41)
[2020-07-16] MEDS: THIAMINE HCL 100 MG TABLET (FP) PO SCH (22:23)
[2020-07-16] MEDS: MIRTAZAPINE 30 MG TABLET PO SCH (22:23)
[2020-07-16] MEDS: QUEtiapine FUMARATE 200 MG TABLET PO SCH (22:23)
[2020-07-16] MEDS: MELATONIN 5 MG TABLETS PO SCH (22:23)
[2020-07-17] MEDS ORDERED: chlordiazePOXIDE HCL 10 MG CAPSULE PO PRN
[2020-07-17] MEDS: chlordiazePOXIDE HCL 10 MG CAPSULE PO SCH ×4 (05:49→22:15)
[2020-07-17] MEDS: PRENATAL VITAMINS W/ FOLIC ACID TABLET (FP) PO SCH (10:22)
[2020-07-17 14:07] LABS: SARS-CoV-2 NAA Not Detected (Not Detected)
[2020-07-17] MEDS: MIRTAZAPINE 30 MG TABLET PO SCH (22:14)
[2020-07-17] MEDS: THIAMINE HCL 100 MG TABLET (FP) PO SCH (22:14)
[2020-07-17] MEDS: QUEtiapine FUMARATE 200 MG TABLET PO SCH (22:14)
[2020-07-17] MEDS: MELATONIN 5 MG TABLETS PO SCH (22:15)
[2020-07-18] MEDS: chlordiazePOXIDE HCL 10 MG CAPSULE PO SCH ×2 (07:11→17:23)
[2020-07-18] MEDS: PRENATAL VITAMINS W/ FOLIC ACID TABLET (FP) PO SCH (09:58)
[2020-07-18] MEDS: MIRTAZAPINE 30 MG TABLET PO SCH (22:05)
[2020-07-18] MEDS: THIAMINE HCL 100 MG TABLET (FP) PO SCH (22:05)
[2020-07-18] MEDS: QUEtiapine FUMARATE 200 MG TABLET PO SCH (22:05)
[2020-07-18] MEDS: MELATONIN 5 MG TABLETS PO SCH (22:07)
[2020-07-19] MEDS ORDERED: chlordiazePOXIDE HCL 10 MG CAPSULE PO ONE (05:00)
[2020-07-19 09:23] VITALS: BP 127/77; PULSE 82; TEMP 97.8
[2020-07-19] MEDS: PRENATAL VITAMINS W/ FOLIC ACID TABLET (FP) PO SCH (11:22)
== END 2020-07-19 12:08 | disposition other institution (70) | DRG 774 ==
LOC: YASAS 09:39 → Y6N 10:32
PROVIDERS: ADMIT Allergy & Immunology; ATTEND Allergy & Immunology
PROC: HZ2ZZZZ Detoxification Services for Substance Abuse Treatment (ICD-10-PCS; principal; 2020-07-14)
DX: F10.230 Alcohol dependence with withdrawal, uncomplicated (principal); F14.20 Cocaine dependence, uncomplicated; F12.20 Cannabis dependence, uncomplicated; F17.210 Nicotine dependence, cigarettes, uncomplicated; F19.282 Other psychoactive substance dependence with psychoactive substance-induced sleep disorder; F39 Unspecified mood [affective] disorder; Z86.19 Personal history of other infectious and parasitic diseases; Z98.890 Other specified postprocedural states; Z56.0 Unemployment, unspecified; Z59.0 Homelessness
CPT/HCPCS: 36415; 80053; 85027; 86593; 86780; C9803; U0003; U0005

== ENCOUNTER 2020-07-19 12:09 | Inpatient (IN) | payer OTHER ==
[2020-07-19] MEDS ORDERED: ACETAMINOPHEN 325 MG TABLET (FP) PO PRN (12:45)
[2020-07-19] MEDS ORDERED: MAGNESIUM CITRATE 300 ML BOTTLE PO PRN (12:45)
[2020-07-19] MEDS ORDERED: IBUPROFEN 400 MG TABLET (FP) PO PRN (12:45)
[2020-07-19] MEDS ORDERED: guaiFENesin 200 MG/10 ML 10 ML UNIT-DOSE CUPS PO PRN (12:45)
[2020-07-19] MEDS ORDERED: MAG HYDROX/AL HYDROX/SIMETH 30 ML UNIT-DOSE CUP PO PRN (12:45)
[2020-07-19] MEDS ORDERED: LOPERAMIDE HCL 2 MG CAPSULE PO PRN (12:45)
[2020-07-19] MEDS ORDERED: MAGNESIUM HYDROX 2400MG/30ML ORAL SUSPENSION 30 ML CUP PO PRN (12:45)
[2020-07-19] MEDS ORDERED: P-EPHED 60MG/TRIPROLIDI 2.5MG TABLET PO PRN (12:45)
[2020-07-19] MEDS: MELATONIN 5 MG TABLETS PO SCH (21:20)
[2020-07-19] MEDS: MIRTAZAPINE 30 MG TABLET PO SCH (21:20)
[2020-07-19] MEDS: QUEtiapine FUMARATE 100 MG TABLET (FP) PO SCH (21:20)
[2020-07-19] MEDS: THIAMINE HCL 100 MG TABLET (FP) PO SCH (21:21)
[2020-07-20] MEDS: PRENATAL VITAMINS W/ FOLIC ACID TABLET (FP) PO SCH (09:40)
[2020-07-20] MEDS ORDERED: MASKS NR ONE (18:18)
[2020-07-20] MEDS: QUEtiapine FUMARATE 100 MG TABLET (FP) PO SCH (21:19)
[2020-07-20] MEDS: MELATONIN 5 MG TABLETS PO SCH (21:19)
[2020-07-20] MEDS: THIAMINE HCL 100 MG TABLET (FP) PO SCH (21:19)
[2020-07-20] MEDS: MIRTAZAPINE 30 MG TABLET PO SCH (21:19)
[2020-07-21] MEDS: PRENATAL VITAMINS W/ FOLIC ACID TABLET (FP) PO SCH (09:44)
[2020-07-21] MEDS: THIAMINE HCL 100 MG TABLET (FP) PO SCH (21:22)
[2020-07-21] MEDS: QUEtiapine FUMARATE 100 MG TABLET (FP) PO SCH (21:23)
[2020-07-21] MEDS: MELATONIN 5 MG TABLETS PO SCH (21:23)
[2020-07-21] MEDS: MIRTAZAPINE 30 MG TABLET PO SCH (21:23)
[2020-07-22] MEDS: PRENATAL VITAMINS W/ FOLIC ACID TABLET (FP) PO SCH (09:51)
[2020-07-22] MEDS: THIAMINE HCL 100 MG TABLET (FP) PO SCH (21:05)
[2020-07-22] MEDS: MELATONIN 5 MG TABLETS PO SCH (21:05)
[2020-07-22] MEDS: MIRTAZAPINE 30 MG TABLET PO SCH (21:05)
[2020-07-22] MEDS: QUEtiapine FUMARATE 100 MG TABLET (FP) PO SCH (21:06)
[2020-07-23 06:09] LABS: SARS-CoV-2 NAA Not Detected (Not Detected)
[2020-07-23] MEDS: PRENATAL VITAMINS W/ FOLIC ACID TABLET (FP) PO SCH (09:56)
[2020-07-23] MEDS: MELATONIN 5 MG TABLETS PO SCH (21:09)
[2020-07-23] MEDS: THIAMINE HCL 100 MG TABLET (FP) PO SCH (21:09)
[2020-07-23] MEDS: QUEtiapine FUMARATE 100 MG TABLET (FP) PO SCH (21:09)
[2020-07-23] MEDS: MIRTAZAPINE 30 MG TABLET PO SCH (21:09)
[2020-07-24] MEDS: PRENATAL VITAMINS W/ FOLIC ACID TABLET (FP) PO SCH (09:41)
[2020-07-24] MEDS: QUEtiapine FUMARATE 100 MG TABLET (FP) PO SCH (21:03)
[2020-07-24] MEDS: MELATONIN 5 MG TABLETS PO SCH (21:03)
[2020-07-24] MEDS: MIRTAZAPINE 30 MG TABLET PO SCH (21:03)
[2020-07-24] MEDS: THIAMINE HCL 100 MG TABLET (FP) PO SCH (21:03)
[2020-07-25] MEDS: PRENATAL VITAMINS W/ FOLIC ACID TABLET (FP) PO SCH (09:32)
[2020-07-25] MEDS: MIRTAZAPINE 30 MG TABLET PO SCH (21:00)
[2020-07-25] MEDS: MELATONIN 5 MG TABLETS PO SCH (21:00)
[2020-07-25] MEDS: THIAMINE HCL 100 MG TABLET (FP) PO SCH (21:01)
[2020-07-25] MEDS: QUEtiapine FUMARATE 100 MG TABLET (FP) PO SCH (21:01)
[2020-07-26] MEDS: PRENATAL VITAMINS W/ FOLIC ACID TABLET (FP) PO SCH (09:41)
[2020-07-26] MEDS: MIRTAZAPINE 30 MG TABLET PO SCH (21:02)
[2020-07-26] MEDS: MELATONIN 5 MG TABLETS PO SCH (21:02)
[2020-07-26] MEDS: THIAMINE HCL 100 MG TABLET (FP) PO SCH (21:02)
[2020-07-26] MEDS: QUEtiapine FUMARATE 100 MG TABLET (FP) PO SCH (21:02)
[2020-07-27 06:29] VITALS: BP 151/85; PULSE 85; TEMP 97.9
[2020-07-27] MEDS: PRENATAL VITAMINS W/ FOLIC ACID TABLET (FP) PO SCH (09:41)
== END 2020-07-27 10:20 | disposition home or self-care (01) | DRG 772 ==
LOC: YASAS 12:09 → Y3W 12:10
PROVIDERS: ADMIT Allergy & Immunology; ATTEND Allergy & Immunology
PROC: HZ42ZZZ Group Counseling for Substance Abuse Treatment, Cognitive-Behavioral (ICD-10-PCS; principal; 2020-07-19)
DX: F14.20 Cocaine dependence, uncomplicated (principal); F12.20 Cannabis dependence, uncomplicated; F17.210 Nicotine dependence, cigarettes, uncomplicated; F31.9 Bipolar disorder, unspecified; Z86.19 Personal history of other infectious and parasitic diseases
CPT/HCPCS: C9803; U0003; U0005

== ENCOUNTER 2022-11-18 08:20 | Inpatient (IN) | payer OTHER ==
[2022-11-18 08:43] VITALS: BMI 20.9
[2022-11-18] MEDS ORDERED: METHOCARBAMOL 500 MG TABLET PO PRN (08:59)
[2022-11-18] MEDS ORDERED: POLYETHYLENE GLYCOL (HEALTHYLAX) 3350 17 GM PACKET PO PRN (08:59)
[2022-11-18] MEDS ORDERED: hydrOXYzine PAMOATE 25 MG CAPSULE (FP) PO PRN (08:59)
[2022-11-18] MEDS ORDERED: ACETAMINOPHEN 325 MG TABLET (FP) PO PRN (08:59)
[2022-11-18] MEDS ORDERED: chlordiazePOXIDE HCL 25 MG CAPSULE PO PRN (08:59)
[2022-11-18] MEDS ORDERED: LOPERAMIDE HCL 2 MG CAPSULE PO PRN (08:59)
[2022-11-18] MEDS ORDERED: IBUPROFEN 400 MG TABLET (FP) PO PRN (08:59)
[2022-11-18] MEDS ORDERED: ONDANSETRON *ODT* 4 MG TABLET SL PRN (08:59)
[2022-11-18] MEDS ORDERED: IBUPROFEN 600 MG TABLET (FP) PO PRN (08:59)
[2022-11-18] MEDS ORDERED: NALOXONE HCL (KLOXXADO) 8 MG SPRAY NS PRN (08:59)
[2022-11-18] MEDS ORDERED: BENZONATATE 200 MG CAPSULE PO PRN (08:59)
[2022-11-18] MEDS ORDERED: DICYCLOMINE HCL 10 MG CAPSULE PO PRN (08:59)
[2022-11-18] MEDS ORDERED: BENZOCAINE/MENTHOL (CHLORASEPTIC ) LOZENGE MM PRN (08:59)
[2022-11-18] MEDS ORDERED: guaiFENesin 600 MG TABLET.ER (FP) PO PRN (08:59)
[2022-11-18] MEDS ORDERED: NALOXONE HCL 0.4 MG/ML VIAL IM PRN (08:59)
[2022-11-18] MEDS ORDERED: MAGNESIUM HYDROX 2400MG/30ML ORAL SUSPENSION 30 ML CUP PO PRN (08:59)
[2022-11-18] MEDS ORDERED: BISMUTH SUBSALICYLATE 524 MG/30 ML PO PRN (08:59)
[2022-11-18] MEDS ORDERED: MAG HYDROX/AL HYDROX/SIMETH 30 ML UNIT-DOSE CUP PO PRN (08:59)
[2022-11-18] MEDS ORDERED: PRENATAL VITAMINS W/ FOLIC ACID TABLET (FP) PO ONE (10:42)
[2022-11-18] MEDS ORDERED: chlordiazePOXIDE HCL 25 MG CAPSULE ONE (10:42)
[2022-11-18] MEDS: chlordiazePOXIDE HCL 25 MG CAPSULE PO SCH ×3 (10:57→22:15)
[2022-11-18] MEDS: PRENATAL VITAMINS W/ FOLIC ACID TABLET (FP) PO SCH (10:57)
[2022-11-18 14:40] LABS: HEMOGLOBIN 13.5 GM/dL (11.7-16.9); MCH 32.8 pg (25.7-33.7); MCHC 33.8 g/dl (32.0-35.9); MEAN CELL VOLUME 97.3 fl (80-96); PLATELET COUNT 156 10^3/uL (134-434); RBC 4.11 M/mm3 (4.00-5.60); RDW 13.5 % (11.9-15.9); WHITE BLOOD COUNT 4.5 K/mm3 (4.0-10.0)
[2022-11-18 14:43] LABS: POTASSIUM 4.2 mmol/L (3.5-5.1)
[2022-11-18 14:45] LABS: BLOOD UREA NITROGEN 4.6 mg/dL (7-18); CALCIUM 9.2 mg/dL (8.5-10.1)
[2022-11-18 14:49] LABS: BILIRUBIN,TOTAL 0.4 mg/dL (0.2-1); CREATININE 0.6 mg/dL (0.55-1.3); TOT PROT 7.7 g/dl (6.4-8.2)
[2022-11-18] MEDS ORDERED: MELATONIN 5 MG TABLETS PO SCH (22:00)
[2022-11-18] MEDS: THIAMINE HCL 100 MG TABLET (FP) PO SCH (22:15)
[2022-11-19] MEDS: chlordiazePOXIDE HCL 25 MG CAPSULE PO SCH ×4 (05:20→22:10)
[2022-11-19] MEDS: PRENATAL VITAMINS W/ FOLIC ACID TABLET (FP) PO SCH (09:27)
[2022-11-19] MEDS: QUEtiapine FUMARATE 100 MG TABLET (FP) PO SCH (22:08)
[2022-11-19] MEDS: THIAMINE HCL 100 MG TABLET (FP) PO SCH (22:09)
[2022-11-20] MEDS: chlordiazePOXIDE HCL 25 MG CAPSULE PO SCH ×4 (05:38→22:27)
[2022-11-20] MEDS: PRENATAL VITAMINS W/ FOLIC ACID TABLET (FP) PO SCH (10:14)
[2022-11-20 21:36] VITALS: PULSE 74
[2022-11-20] MEDS: QUEtiapine FUMARATE 100 MG TABLET (FP) PO SCH (22:25)
[2022-11-20] MEDS: THIAMINE HCL 100 MG TABLET (FP) PO SCH (22:25)
[2022-11-21] MEDS ORDERED: chlordiazePOXIDE HCL 10 MG CAPSULE PO PRN
[2022-11-21] MEDS ORDERED: chlordiazePOXIDE HCL 10 MG CAPSULE PO SCH (05:00)
[2022-11-21 06:16] VITALS: BP 132/90; RESP 16; TEMP 97.1
[2022-11-22] MEDS ORDERED: chlordiazePOXIDE HCL 10 MG CAPSULE PO SCH (05:00)
[2022-11-23] MEDS ORDERED: chlordiazePOXIDE HCL 10 MG CAPSULE PO ONE (05:00)
== END 2022-11-21 08:39 | disposition left against medical advice (07) | DRG 770 ==
LOC: YASAS 08:20 → Y3N 12:55
PROVIDERS: ADMIT Allergy & Immunology; ATTEND Allergy & Immunology
PROC: HZ2ZZZZ Detoxification Services for Substance Abuse Treatment (ICD-10-PCS; principal; 2022-11-18)
DX: F10.230 Alcohol dependence with withdrawal, uncomplicated (principal); F12.10 Cannabis abuse, uncomplicated; F19.282 Other psychoactive substance dependence with psychoactive substance-induced sleep disorder; F20.0 Paranoid schizophrenia; F31.9 Bipolar disorder, unspecified; F39 Unspecified mood [affective] disorder; F41.9 Anxiety disorder, unspecified; R76.8 Other specified abnormal immunological findings in serum; Z86.19 Personal history of other infectious and parasitic diseases; Z87.891 Personal history of nicotine dependence
CPT/HCPCS: 36415; 80053; 85027; 86593; 86780; 87635